=== PATIENT | male | born 1955 | race African-American/Black ===

== ENCOUNTER 2018-01-23 14:24 | Emergency (ER) | payer OTHER, BC ==
[2018-01-23] MEDS: SOD CHLORIDE 0.9% 1,000 ML IV (14:47)
[2018-01-23 14:49] LABS: ADD MAN DIFF? NO
[2018-01-23 14:54] LABS: BASOPHILS % 0.4 % (0.0-2.0); EOSINOPHILS # 0.1 10^3/ul (0.0-0.5); EOSINOPHILS % 2.7 % (0.0-7.0); HEMATOCRIT 35.7 % (42.0-52.0); HEMOGLOBIN 12.1 g/dl (14.0-18.0); LYMPHOCYTES # 1.7 10^3/ul (0.8-2.9); LYMPHOCYTES % 34.2 % (15.0-51.0); MEAN CORPUSCULAR HEMOGLOBIN 33.4 pg (29.0-33.0); MEAN CORPUSCULAR HGB CONC 33.9 g/dl (32.0-37.0); MEAN CORPUSCULAR VOLUME 98.6 fl (82.0-101.0); MEAN PLATELET VOLUME 9.9 fl (7.4-10.4); MONOCYTE # 0.6 10^3/ul (0.3-0.9); NEUTROPHIL # 2.4 10^3/ul (1.6-7.5); NEUTROPHILS % 49.3 % (39.0-77.0); PLATELET COUNT 106 10^3/UL (140-415); POSITIVE DIFF @See below; RED BLOOD COUNT 3.62 10^6/ul (4.70-6.10); RED CELL DISTRIBUTION WIDTH 12.1 % (11.5-14.5)
[2018-01-23 14:54] LABS: WHITE BLOOD COUNT 4.8 10^3/ul (4.8-10.8)
[2018-01-23 15:13] LABS: ANION GAP 8 (8-16); BLOOD UREA NITROGEN 16 mg/dl (7-20); CALCIUM 8.5 mg/dl (8.4-10.2); CARBON DIOXIDE 28 mmol/L (21-31); CHLORIDE 106 mmol/L (97-110); CREATININE 1.56 mg/dl (0.61-1.24); GLUCOSE 113 mg/dl (70-220); POTASSIUM 4.5 mmol/L (3.5-5.1); SODIUM 137 mmol/L (135-144)
[2018-01-23 15:25] LABS: TROPONIN-I < 0.012 ng/ml (0.000-0.120)
[2018-01-23] MEDS: SOD CHLORIDE 0.9% 500 ML IV (15:33)
== END 2018-01-23 17:38 | disposition home or self-care (01) ==
LOC: E/R 14:24
DX: R55 Syncope and collapse (principal); I50.9 Heart failure, unspecified; Z79.82 Long term (current) use of aspirin
CPT/HCPCS: 36415; 70450; 71045; 72125; 80048; 82962; 84484; 85025; 93005; 99285-25